=== PATIENT | female | born 1955 | race Caucasian/White ===

== ENCOUNTER 2017-04-10 21:19 | Emergency (ER) | payer BC, OTHER ==
[2017-04-11] MEDS ORDERED: CYCLOBENZAPRINE HCL 10 MG TABLET PO ONE (00:19)
--- NOTE | 2017-04-11 00:22 | ER Document Report ---
ED Fall - General Chief Complaint: Fall Injury Stated Complaint: FALL,SHOULDER/NECK PAIN Time Seen by Provider: 04/11/17 00:05 Mode of Arrival: Ambulatory Information source: Patient - HPI Patient complains to provider of: Trip and fall, left shoulder and neck pain Occurred: Last week Where: Home Context: Tripped Associated symptoms: None Location of injury/pain: Neck, Shoulder, Upper extremity Quality of pain: Achy Severity: Moderate Pain Level: 3 Notes: Patient is a 61-year-old female who presents to the emergency room complaining of trip and fall that occurred last Wednesday while at home, states she tripped over a grocery bag, landing on the floor, hitting her right elbow on the bookcase on the way down, stating that she felt the pain that was similar to hitting her funny bone, which subsided, she took some ibuprofen and Aleve at home which helped her symptoms significantly, then this morning she developed left-sided neck tightness with trapezius muscle pain as well, denies any numbness or tingling to her extremities, there was no loss of consciousness at time of initial injury, no nausea, vomiting, no change in vision, no headache - Related data Allergies/Adverse Reactions: acetaminophen [From Percocet] Allergy (Verified 04/10/17 22:12) oxycodone [From Percocet] Allergy (Verified 04/10/17 22:12) Past Medical History - General Information source: Patient - Social History Smoking Status: Never Smoker Chew tobacco use (# tins/day): No Frequency of alcohol use: None Drug Abuse: None Family History: Reviewed & Not Pertinent Patient has suicidal ideation: No Patient has homicidal ideation: No Endocrine Medical History: Reports: Hx Diabetes Mellitus Type 1 Renal/ Medical History: Denies: Hx Peritoneal Dialysis GI Medical History: Reports: Hx Gastroesophageal Reflux Disease Past Surgical History: Reports: Hx Abdominal 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 - Immunizations Hx Diphtheria, Pertussis, Tetanus Vaccination: No Review of Systems - Review of Systems Constitutional: No symptoms reported EENT: No symptoms reported Cardiovascular: No symptoms reported Respiratory: No symptoms reported Gastrointestinal: No symptoms reported Genitourinary: No symptoms reported Female Genitourinary: No symptoms reported Musculoskeletal: See HPI Skin: No symptoms reported Hematologic/Lymphatic: No symptoms reported Neurological/Psychological: No symptoms reported -: Yes All other systems reviewed and negative Physical Exam - Vital signs Vitals: Temp Pulse Resp BP Pulse Ox 97.9 F 86 16 149/69 H 100 04/10/17 22:14 04/10/17 22:14 04/10/17 22:14 04/10/17 22:14 04/10/17 22:14 Interpretation: Normal - General General appearance: Appears well, Alert - HEENT Head: Normocephalic, Atraumatic Eyes: Normal Conjunctiva: Normal Extraocular movements intact: Yes Eyelashes: Normal Pupils: PERRL Neck: Other - Tenderness to palpate in the left paraspinal muscle, no midline tenderness - Respiratory Respiratory status: No respiratory distress Chest status: Nontender Breath sounds: Normal Chest palpation: Normal - Cardiovascular Rhythm: Regular Heart sounds: Normal auscultation Murmur: No - Abdominal Inspection: Normal Distension: No distension Bowel sounds: Normal Tenderness: Nontender Organomegaly: No organomegaly - Back Back: Normal, Nontender - Extremities General upper extremity: Normal inspection, Nontender, Normal color, Normal ROM , Normal temperature General lower extremity: Tender - Tenderness to palpate in left trapezius muscle , Normal color, Normal ROM, Normal temperature, Normal weight bearing. No: Rl's sign - Neurological Neuro grossly intact: Yes Cognition: Normal Orientation: AAOx4 [place] Coma Scale Eye Opening: Spontaneous Zen Coma Scale Verbal: Oriented [place] Coma Scale Motor: Obeys Commands Zen Coma Scale Total: 15 Speech: Normal Motor strength normal: LUE, RUE, LLE, RLE Sensory: Normal - Psychological Associated symptoms: Normal affect, Normal mood - Skin Skin Temperature: Warm Skin Moisture: Dry Skin Color: Normal Course - Re-evaluation Re-evalutation: 04/11/17 06:52 Patient symptoms are consistent with muscle strain, there is no bony deformity or midline tenderness in the cervical spine, patient was provided with a dose of muscle relaxer in the emergency room as well as a prescription for same, advised to continue taking ibuprofen or Tylenol, apply warm compresses with gentle stretching and massage, follow-up with a primary care provider or return if symptoms worsen, patient acknowledges understanding and agreement with this plan - Vital Signs Vital signs: Temp Pulse Resp BP Pulse Ox 97.9 F 86 18 148/72 H 99 04/10/17 22:14 04/11/17 00:46 04/11/17 00:46 04/11/17 00:46 04/11/17 00:46 Discharge - Discharge Clinical Impression: Cervical strain, acute Qualifiers: Encounter type: initial encounter Qualified Code(s): S16.1XXA - Strain of muscle, fascia and tendon at neck level, initial encounter Trapezius muscle strain Qualifiers: Encounter type: initial encounter Laterality: left Qualified Code(s): S46.812A - Strain of other muscles, fascia and tendons at shoulder and upper arm level, left arm, initial encounter Condition: Stable Disposition: HOME, SELF-CARE Instructions: Muscle Strain ([facility]), Muscle Relaxers ([facility]) Additional Instructions: Follow up with your primary care provider in 2-3 days. Return to the ER immediately if symptoms worsen or any additional concerns. Prescriptions: Cyclobenzaprine HCl [Flexeril 10 Mg Tablet] 10 mg PO TID #10 tablet Forms: Return to Work
[2017-04-11 00:47] VITALS: BP 148/72
== END 2017-04-11 00:46 | disposition home or self-care (01) ==
LOC: ER 21:19
DX: S16.1XXA Strain of muscle, fascia and tendon at neck level, initial encounter (principal); S46.812A Strain of other muscles, fascia and tendons at shoulder and upper arm level, left arm, initial encounter; M25.512 Pain in left shoulder; M54.2 Cervicalgia; W01.190A Fall on same level from slipping, tripping and stumbling with subsequent striking against furniture, initial encounter; Y92.009 Unspecified place in unspecified non-institutional (private) residence as the place of occurrence of the external cause; Z88.6 Allergy status to analgesic agent; E11.9 Type 2 diabetes mellitus without complications; K21.9 Gastro-esophageal reflux disease without esophagitis; Z98.84 Bariatric surgery status
CPT/HCPCS: 99283; L0120